=== PATIENT | female | born 1990 | race Caucasian/White ===

== ENCOUNTER 2016-11-13 09:16 | Emergency (ER) | payer OTHER ==
[~2016-11-13] VITALS: Ht 160 cm; Wt 67.6 kg
[~2016-11-13 09:16] MED LIST: CLEOCIN300 MG PO; COLACE100 MG PO; Celexa PO; DOLOPHINE HCL10 MG PO; DOXYCYCLINE HY100 MG PO; FLAGYL500 MG PO; FOLVITE1 MG PO; HYDROCODON-ACE1 EAC8 PO; IRON325 M1 PO; MOTRIN800 MG PO; NO MEDS; NOHOMEMEDS; OXYCODONE10 MG PO; PERCOCET 5/31 TABLET PO; THIAMINE,VITAM100 MG PO; TRAZODONE HCL100 MG PO; VICODIN 5-3001 EACH PO; VICODIN,LORT1 TABLET PO; ZOFRAN4 MG PO
[2016-11-13 09:21] VITALS: BP 133/80
[2016-11-13] MEDS ORDERED: MUCINEX600 MG PO (10:03)
== END 2016-11-13 10:49 | disposition home or self-care (01) ==
LOC: EME 09:16
DX: J06.9 Acute upper respiratory infection, unspecified (principal)
CPT/HCPCS: 99281; 99282